=== PATIENT | female | born 1965 | race African-American/Black ===

== ENCOUNTER 2019-11-17 18:28 | Observation (INO) | payer OTHER ==
[~2019-11-17] VITALS: Ht 170.2 cm; Wt 176.0 kg
[2019-11-17 18:31] VITALS: Ht 170.2 cm; Wt 176.0 kg
[2019-11-17 19:17] LABS: BASOPHIL % 0.2 % (0-2); PLATELET COUNT 261 x10^3mcL (130-400); RED CELL DISTRIBUTION WIDTH 14.3 % (11.5-14.5)
[2019-11-17 19:27] LABS: CARBON DIOXIDE 29.7 mmol/L (21-32); CREATININE SERUM 1.6 mg/dL (0.6-1.0); POTASSIUM SERUM 3.6 mmol/L (3.5-5.1)
[2019-11-17 19:31] LABS: BILIRUBIN TOTAL 0.4 mg/dL (0.20-1.00); TOTAL PROTEIN, SERUM 7.5 g/dL (6.4-8.2)
[2019-11-17 19:38] LABS: ALBUMIN 2.8 g/dL (3.4-5.0)
[2019-11-17 21:33] VITALS: BP 121/64
[2019-11-18 04:33] LABS: BASOPHIL % 0.5 % (0-2); PLATELET COUNT 250 x10^3mcL (130-400); RED CELL DISTRIBUTION WIDTH 14.5 % (11.5-14.5)
[2019-11-18 04:35] LABS: CARBON DIOXIDE 29.7 mmol/L (21-32); CREATININE SERUM 1.7 mg/dL (0.6-1.0); POTASSIUM SERUM 4.1 mmol/L (3.5-5.1)
[2019-11-18 05:24] VITALS: BP 118/52
[2019-11-18 08:45] VITALS: BP 136/67
[2019-11-18 12:38] VITALS: BP 139/70
[2019-11-18 16:22] LABS: UA SPECIFIC GRAVITY >=1.030 (1.005-1.035); microscopic required? YES; urine erythrocyte TRACE (NEGATIVE)
[2019-11-18 17:11] VITALS: BP 139/57
[2019-11-18 20:31] VITALS: BP 111/54
[2019-11-19 05:56] VITALS: BP 142/59
[2019-11-19 09:12] VITALS: BP 105/58
[2019-11-19 14:30] VITALS: BP 130/61
== END 2019-11-19 15:32 | disposition home or self-care (01) ==
LOC: ED 18:28 → DU 20:30
PROVIDERS: Emergency Medicine; Internal Medicine Pulmonary Disease; ADMIT Internal Medicine
DX: R07.89 Other chest pain (principal); E78.5 Hyperlipidemia, unspecified; J45.909 Unspecified asthma, uncomplicated; I12.9 Hypertensive chronic kidney disease with stage 1 through stage 4 chronic kidney disease, or unspecified chronic kidney disease; N18.3 Chronic kidney disease, stage 3 (moderate); E11.22 Type 2 diabetes mellitus with diabetic chronic kidney disease; Z87.891 Personal history of nicotine dependence; Z82.49 Family history of ischemic heart disease and other diseases of the circulatory system; Z23 Encounter for immunization
CPT/HCPCS: 43235; 82962; 83880; 90658; 90732; C9113; G0378; J1200; J1610; J2250; J2270; J2310; J2405; J3010; J3490; Q0092

== ENCOUNTER 2020-06-20 01:20 | Emergency (ER) | payer OTHER ==
[~2020-06-20] VITALS: Ht 170.2 cm; Wt 163.7 kg
[2020-06-20 01:33] VITALS: Ht 170.2 cm; Wt 163.7 kg
[2020-06-20 04:40] VITALS: BP 162/72
== END 2020-06-20 04:40 | disposition home or self-care (01) ==
LOC: ED 01:20
DX: I83.028 Varicose veins of left lower extremity with ulcer other part of lower leg (principal); L97.829 Non-pressure chronic ulcer of other part of left lower leg with unspecified severity; I13.0 Hypertensive heart and chronic kidney disease with heart failure and stage 1 through stage 4 chronic kidney disease, or unspecified chronic kidney disease; E11.22 Type 2 diabetes mellitus with diabetic chronic kidney disease; N18.4 Chronic kidney disease, stage 4 (severe); I50.9 Heart failure, unspecified; E78.00 Pure hypercholesterolemia, unspecified; Z88.0 Allergy status to penicillin
CPT/HCPCS: 82962; Q0092

== ENCOUNTER 2020-09-08 18:30 | Emergency (ER) | payer OTHER ==
[~2020-09-08] VITALS: Ht 170.2 cm; Wt 172.4 kg
[~2020-09-08 18:30] MED LIST: ALL DAY ALLERGY10 M2 PO; AMLODIPINE BESY1 T14 PO; APR50 PO; ASPIR 8181 MG PO; ATORVASTATIN CA40 M1 PO; CLONIDINE HYDR0.1 M1 PO; COZAAR100 MG PO; ELIQUIS5 MG PO; GRALISE600 MG PO; ISOSORBIDE MONO60 MG PO; LASIX40 MG PO; LIO10 PO; NOR5 PO; PAXIL40 M1 PO; TOP50 PO; Z5 PO; ZYLOPRIM100 MG PO
[2020-09-08 18:52] VITALS: Ht 170.2 cm; Wt 172.4 kg
[2020-09-08 19:37] LABS: BASOPHIL % 0.1 % (0-2); PLATELET COUNT 349 x10^3mcL (130-400); RED CELL DISTRIBUTION WIDTH 15.4 % (11.5-14.5)
[2020-09-08 22:12] LABS: CALCIUM 8.9 mg/dL (8.5-10.1); CARBON DIOXIDE 23.1 mmol/L (21-32); CREATININE SERUM 2.7 mg/dL (0.6-1.0); POTASSIUM SERUM 3.9 mmol/L (3.5-5.1)
[2020-09-08 22:54] VITALS: BP 135/69
== END 2020-09-08 22:54 | disposition home or self-care (01) ==
LOC: ED 18:30
PROVIDERS: Emergency Medicine
DX: I13.0 Hypertensive heart and chronic kidney disease with heart failure and stage 1 through stage 4 chronic kidney disease, or unspecified chronic kidney disease (principal); E11.22 Type 2 diabetes mellitus with diabetic chronic kidney disease; N18.4 Chronic kidney disease, stage 4 (severe); I50.9 Heart failure, unspecified; R09.1 Pleurisy; E78.00 Pure hypercholesterolemia, unspecified; Z20.828 Contact with and (suspected) exposure to other viral communicable diseases; Z88.0 Allergy status to penicillin
CPT/HCPCS: 83880; 85378; J1885; J2270